=== PATIENT | male | born 1970 | race Caucasian/White ===

== ENCOUNTER 2019-09-21 20:13 | Emergency (ER) | payer SELFPAY ==
[~2019-09-21] VITALS: Ht 185.4 cm; Wt 99.8 kg
[2019-09-21 20:13] VITALS: BP 111/69
--- NOTE | 2019-09-21 20:13 | NUR ---
PT BIBA ALS TO ER BED 10
--- NOTE | 2019-09-21 20:15 | NUR ---
49M PRESENTS TO ED VIA AMBULANCE WITH CC OF POSSIBLE DRUG OVERDOSE. PT WAS FOUND UNRESPONSIVE ,PER EMS, AT PLACE OF RESIDENCE. PT WAS GIVE 4MG OF NARCAN IM IN THE FIELD. UPON ARRIVAL TO HOSPITAL, PT FINALLY AWAKE AND RESPONSIVE WITH [facility] OF 12. PT A/O X2 TO NAME AND . PT STATES THEY HAD 2 PINTS OF BEER X THIS AM. PT PLACED 2L N/C FOR 02SAT OF 92%, NOW AT 98%. RR EVEN AND UNLABORED. DENIES N/V/D. DENIES SOB/COUGH. PMHX: DM RX: UBOBTN NKA NEGATIVE FOR COVID SCREENING.
[2019-09-21] MEDS ORDERED: INSULIN REGULAR, HUMAN 100 UNIT/ML VIAL IVP ONE (20:20)
[2019-09-21] MEDS ORDERED: NACL 0.9% 1,000 ML IV ONE (20:20)
--- NOTE | 2019-09-21 20:20 | NUR ---
URINE AND BLOOD DRAW SENT TO LAB
[2019-09-21 20:25] VITALS: BP 111/69
--- NOTE | 2019-09-21 20:30 | NUR ---
PT PLACED ON 2L N/C FOR 02SAT OF 92%, NOW AT 98%.
[2019-09-21 20:38] LABS: BASOPHILS # (AUTO) 0.1 K/uL (0.00-0.22); BASOPHILS % (AUTO) 0.8 % (0.0-2.0); EOSINOPHILS # (AUTO) 0.3 K/uL (0-0.4); EOSINOPHILS % (AUTO) 2.5 % (0.0-4.0); HEMATOCRIT 41.5 % (36-52); HEMOGLOBIN 13.6 g/dL (12.0-18.0); LYMPHOCYTES # (AUTO) 2.6 K/uL (2.0-11.5); MEAN CORPUSCULAR HEMOGLOBIN 31 pg (27-31); MEAN CORPUSCULAR HGB CONC 33 g/dL (33-37); MEAN CORPUSCULAR VOLUME 95.2 fL (80-94); MONOCYTES # (AUTO) 0.3 K/uL (0.8-1.0); MONOCYTES % (AUTO) 2.6 % (1.7-9.3); NEUTROPHILS # (AUTO) 9.4 K/uL (1.8-7.7); NEUTROPHILS % (AUTO) 74.1 % (42.2-75.2); PLATELET COUNT (AUTO) 248 K/uL (140-450); RED BLOOD CELL COUNT(AUTO) 4.36 MIL/uL (4.20-6.10); RED CELL DISTRIBUTION WIDTH 14.6 % (11.6-13.7); WHITE BLOOD COUNT (AUTO) 12.7 K/uL (4.8-10.8)
[2019-09-21 20:49] LABS: BARBITURATE, URINE NEGATIVE ng/ml (NEG <=200); BENZODIAZEPINE, URINE NEGATIVE ng/mL (NEG <=200); CANNABINOID, URINE NEGATIVE ng/mL (NEG <=50); COCAINE, URINE NEGATIVE ng/mL (NEG <=300); OPIATE, URINE POSITIVE ng/mL (NEG <=2000); PHENCYCLIDINE SCREEN,URINE NEGATIVE ng/mL (NEG <=25)
--- NOTE | 2019-09-21 20:50 | NUR ---
XRAY AT BEDSIDE
[2019-09-21 20:55] LABS: ALBUMIN 3.5 g/dL (3.4-5.0); ANION GAP 16.4 (8-16); ASPARTATE AMINOTRANSFERASE 72 U/L (15-37); CARBON DIOXIDE 24.5 mmol/L (21-32); CHLORIDE 100 mmol/L (98-107); GFR ARICAN-AMERICAN 46 mL/min (>90); POTASSIUM 4.9 mmol/L (3.5-5.1); SODIUM SERUM 136 mmol/L (136-145); TOTAL BILIRUBIN 0.5 mg/dL (0.0-1.0); UREA NITROGEN, BLOOD 14 mg/dL (7-18)
[2019-09-21 20:58] LABS: ACETAMINOPHEN < 0.5 ug/ml (10-30); GLUCOSE 407 mg/dL (74-106); SALICYLATE < 2.8 mg/dL (2.8-20.0)
--- NOTE | 2019-09-21 21:18 | NUR ---
RBS 99. ERMD MADE AWARE
--- NOTE | 2019-09-21 21:40 | NUR ---
PT ACTIVELY VOMITING. ERMD MADE AWARE. ADVISED TO MEDICATE WITH ZOFRAN ODT
[2019-09-21] MEDS ORDERED: ONDANSETRON 4 MG ODT ONE (21:44)
[2019-09-21] MEDS ORDERED: ONDANSETRON 4 MG ODT PO ONE (21:45)
--- NOTE | 2019-09-21 22:07 | NUR ---
Patient discharged with v/s stable. Written and verbal after care instructions given and explained. Patient verbalized understanding. Ambulatory with steady gait. All questions addressed prior to discharge. Advised to follow up with PMD.
== END 2019-09-21 22:07 | disposition home or self-care (01) ==
LOC: MED 20:13
DX: F19.20 Other psychoactive substance dependence, uncomplicated (principal); E11.65 Type 2 diabetes mellitus with hyperglycemia
CPT/HCPCS: 36415; 71045; 80053; 80305; 85025; 93005; 96361; 96374; 99285; G0480; G0482; J1815; J7030; Q0092; Q0162